=== PATIENT | male | born 1940 | race Caucasian/White ===

== ENCOUNTER 2018-07-24 07:54 | Day surgery (SDC) | payer MEDICARE, OTHER ==
[~2018-07-24] VITALS: Ht 167.6 cm; Wt 87.2 kg
[~2018-07-24 07:54] MED LIST: ATOR10; ATOR40TA PO; Cialis5 MG; LANS15EC PO; Multiple Vitam1 EAC1 PO; TAMS.4ER; VICODIN 5-3001 EACH PO
--- NOTE | 2018-07-24 10:01 | NUR ---
07/24/18 1001 Meena Horton 0934 BP 86/54. DR NOTIFIED, EPHEDRINE IV GIVEN PER ORDERS. VSS REST OF CASE
== END 2018-07-24 10:36 | disposition home or self-care (01) ==
LOC: ORSCSDS 07:54
PROVIDERS: Internal Medicine Gastroenterology
PROC: 0DB58ZX Excision of Esophagus, Via Natural or Artificial Opening Endoscopic, Diagnostic (ICD-10-PCS; principal; 2018-07-24 09:15)
PROC: 0DB98ZX Excision of Duodenum, Via Natural or Artificial Opening Endoscopic, Diagnostic (ICD-10-PCS; principal; 2018-07-24 09:15)
PROC: 0DBP8ZX Excision of Rectum, Via Natural or Artificial Opening Endoscopic, Diagnostic (ICD-10-PCS; principal; 2018-07-24 09:15)
DX: R19.7 Diarrhea, unspecified (principal); Z86.010 Personal history of colon polyps; D12.8 Benign neoplasm of rectum; R10.9 Unspecified abdominal pain; K57.30 Diverticulosis of large intestine without perforation or abscess without bleeding; K64.8 Other hemorrhoids; K44.9 Diaphragmatic hernia without obstruction or gangrene; K31.4 Gastric diverticulum; Z87.891 Personal history of nicotine dependence; Z79.899 Other long term (current) drug therapy
CPT/HCPCS: 88305; J7120

== ENCOUNTER 2019-05-14 07:00 | Day surgery (SDC) | payer MEDICARE, OTHER ==
[~2019-05-14] VITALS: Ht 170.2 cm; Wt 89.0 kg
[2019-05-14] MEDS ORDERED: Aspir 8181 MG PO (08:06)
--- NOTE | 2019-05-14 11:29 | NUR ---
RIGHT RADIAL TR BAND SITE SOFT NON-TENDER WITH NO HEMATOMA AND NO PULSATILE WITH WRIST BOARD INPLACE. PT AMBULATED TO BR TO VOID. PT DENIES CHEST PAIN. CALL LIGHT IN REACH; PT DRINKING COFFEE.
--- NOTE | 2019-05-14 13:06 | NUR ---
9 CC OF AIR REMOVED OVER 10 MIN FROM NOW DELFATED RIGHT TR BAND. NO HEMATOMA AND NO PULSATILE BLEEDING. DISCHARE INSTRUCTIONS REVIEWED AND ALL QUESTIONS ANSWERED. PT'S AND FRIEND IN ROOM. CALL LIGHT IN REACH.
--- NOTE | 2019-05-14 13:25 | NUR ---
NO CHANGES TO DEFLATED RIGHT TR BAND.
--- NOTE | 2019-05-14 14:01 | NUR ---
DEFLATED RIGHT TR BAND REMOVED AND POLYMEM PLACED OVER RIGHT RADIAL SITE. RIGHT WRIST BOARD PLACED. ALL DISCHARGE INSTRUCTIONS WERE REVIEWED. 20 G IV WAS DISCONTINUED WITH INTACT CANNULA. RIGHT ARM SLING PLACED AND PT ESCORTED OUT VIA WHEELCHAIR ESCORT. RIGHT RADIAL SITE SOFT NON-TENDER WITH NO HEMATOMA AND NO PULSATILE BLEEDING.
== END 2019-05-14 14:12 | disposition home or self-care (01) ==
LOC: MHTC 07:00
PROC: 4A023N7 Measurement of Cardiac Sampling and Pressure, Left Heart, Percutaneous Approach (ICD-10-PCS; principal; 2019-05-14)
PROC: B201YZZ Plain Radiography of Multiple Coronary Arteries using Other Contrast (ICD-10-PCS; principal; 2019-05-14)
DX: I25.10 Atherosclerotic heart disease of native coronary artery without angina pectoris (principal); I08.3 Combined rheumatic disorders of mitral, aortic and tricuspid valves; I11.9 Hypertensive heart disease without heart failure; I44.0 Atrioventricular block, first degree; I45.10 Unspecified right bundle-branch block; K21.9 Gastro-esophageal reflux disease without esophagitis; N52.9 Male erectile dysfunction, unspecified; I87.2 Venous insufficiency (chronic) (peripheral); I73.00 Raynaud's syndrome without gangrene; E78.5 Hyperlipidemia, unspecified; Z87.891 Personal history of nicotine dependence; Z79.899 Other long term (current) drug therapy
CPT/HCPCS: 93005; 93010; 93454; 99152; 99153; C1769; C1894; J1644; J2250; J3010; J7030; Q9967

== ENCOUNTER 2019-05-19 10:20 | Emergency (ER) | payer MEDICARE, OTHER ==
[~2019-05-19] VITALS: Ht 170.2 cm; Wt 88.8 kg
[~2019-05-19 10:20] MED LIST changes: +Aspir 8181 MG PO
[2019-05-19 10:44] LABS: BASOPHILS ABSOLUTE AUTO 0.04 K/mm3 (0.00-0.23); BASOPHILS PERCENT AUTO 1 % (0-2); EOSINOPHILS ABSOLUTE AUTO 0.12 K/mm3 (0.00-0.68); EOSINOPHILS PERCENT AUTO 2 % (0-6); Hematocrit 47.5 % (37.0-53.0); Hemoglobin 15.7 g/dL (13.5-17.5); IMMATURE GRAN ABSOLUTE AUTO 0.03 K/mm3 (0.00-0.10); IMMATURE GRAN PERCENT AUTO 0 % (0-1); LYMPHOCYTES ABSOLUTE AUTO 2.11 K/mm3 (0.84-5.20); LYMPHOCYTES PERCENT AUTO 30 % (21-46); MONOCYTES ABSOLUTE AUTO 0.41 K/mm3 (0.16-1.47); MONOCYTES PERCENT AUTO 6 % (4-13); Mean Corpuscular HGB 31.5 pg (26.0-34.0); Mean Corpuscular HGB Conc 33.1 g/dL (31.5-36.5); Mean Corpuscular Volume 95 fL (80-100); Mean Platelet Volume 9.5 fL (9.1-12.4); NEUTROPHILS ABSOLUTE AUTO 4.43 K/mm3 (1.96-9.15); NEUTROPHILS PERCENT AUTO 62 % (41-73); Platelet Count 225 K/mm3 (150-400); RDW Coefficient Variation 12.9 % (11.7-14.2); RDW Standard Deviation 45.8 fL (35.1-46.3); Red Blood Cell Count 4.99 M/mm3 (4.30-5.90); White Blood Cell Count 7.14 K/mm3 (4.00-11.30)
[2019-05-19 10:58] LABS: International Normalized Ratio 0.97; Prothrombin Time Results 10.3 Sec (9.7-11.5)
[2019-05-19] MEDS ORDERED: AMLODIPINE BESYL5 MG PO (10:59)
[2019-05-19] MEDS ORDERED: METO25ER (10:59)
[2019-05-19 11:09] LABS: Alanine Aminotransfer (ALT/SGP 30 U/L (12-78); Albumin, Blood 3.9 g/dL (3.4-5.0); Albumin/Globulin Ratio 1.2 (0.8-1.8); Alk Phos 84 U/L (50-136); Anion Gap 8 mmol/L (6-16); Aspartate Aminotrans (AST/SGOT 25 U/L (12-37); Bilirubin, Total 0.9 mg/dL (0.1-1.0); Blood Urea Nitrogen 14 mg/dL (8-24); Bun/Creatinine Ratio 12.4 (12.0-20.0); CO2, Blood 24 mmol/L (21-32); Calcium, Blood 9.1 mg/dL (8.5-10.1); Chloride, Blood 109 mmol/L (98-108); Creatinine, Blood 1.13 mg/dL (0.60-1.20); Globulin, Blood 3.2 g/dL (2.2-4.0); Glomerular Filtration Rate >60 (60-); Glucose, Blood 104 mg/dL (70-99); Potassium, Blood 3.9 mmol/L (3.5-5.5); Sodium, Blood 141 mmol/L (136-145); Total Protein, Blood 7.1 g/dL (6.4-8.2); Troponin I <0.015 ng/mL (0.000-0.040)
== END 2019-05-19 13:08 | disposition short-term general hospital (02) ==
LOC: ER 10:20
PROVIDERS: Physician Assistant
DX: I24.9 Acute ischemic heart disease, unspecified (principal); E78.00 Pure hypercholesterolemia, unspecified; Z95.9 Presence of cardiac and vascular implant and graft, unspecified; Z79.899 Other long term (current) drug therapy; Z79.82 Long term (current) use of aspirin; Z79.891 Long term (current) use of opiate analgesic
CPT/HCPCS: 36415; 71046; 80053; 83880; 84484; 85025; 85610; 93005; 93010; 99285-25; J1644

== ENCOUNTER → 2019-10-19 | Outpatient (CLI) | payer MEDICARE, OTHER ==
[~2019-10-19] MED LIST changes: +AMLODIPINE BESYL5 MG PO; +METO25ER
== END | disposition home or self-care (01) ==
LOC: LAB SHORT 14:31 → PLD 14:31
DX: C44.519 Basal cell carcinoma of skin of other part of trunk (principal)
CPT/HCPCS: 88305

== ENCOUNTER → 2019-12-01 | Outpatient (CLI) | payer MEDICARE, OTHER | END | disposition home or self-care (01) | LOC: LAB SHORT 07:58 → PLD 07:58 | DX: C44.519 Basal cell carcinoma of skin of other part of trunk (principal) | CPT/HCPCS: 88305 ==

== ENCOUNTER → 2020-01-21 | Outpatient (CLI) | payer MEDICARE, OTHER ==
[~2020-01-21] MED LIST changes: +ACET500 PO; +MAGNESIUM PO; +SERT50 PO; +TADA10TA PO; +TAMS.4ER PO; +VITAMIN D3125 MC3 PO; +[UNRECOGNIZED DRUG - CODE] PO
[2020-01-22 13:38] LABS: Stool Occult Blood Guaiac 1 Neg (Neg); Stool Occult Blood Guaiac 2 Neg (Neg)
[2020-01-22 13:39] LABS: Stool Occult Blood Guaiac 3 Neg (Neg)
== END | disposition home or self-care (01) ==
LOC: LAB FUT 01-14 17:25 → LAB SHORT 08:15 → LAB 08:15
PROVIDERS: Internal Medicine
DX: D64.9 Anemia, unspecified (principal)
CPT/HCPCS: 82272

== ENCOUNTER → 2020-11-28 | Outpatient (CLI) | payer MEDICARE, OTHER | LOC: LAB SHORT 13:13 → LAB 13:13 | DX: C44.519 Basal cell carcinoma of skin of other part of trunk (principal) | CPT/HCPCS: 88305 ==

== ENCOUNTER 2020-12-07 10:20 | Day surgery (SDC) | payer MEDICARE, OTHER | END 2020-12-07 23:13 | disposition home or self-care (01) | LOC: WOUND 10:20 | DX: S31.819A Unspecified open wound of right buttock, initial encounter (principal); X58.XXXA Exposure to other specified factors, initial encounter; K61.0 Anal abscess | CPT/HCPCS: A9270; G0463 ==

== ENCOUNTER 2020-12-11 00:19 | Day surgery (SDC) | payer MEDICARE, OTHER | END 2020-12-12 02:18 | disposition home or self-care (01) | LOC: WOUND 00:19 | DX: S31.819D Unspecified open wound of right buttock, subsequent encounter (principal); X58.XXXD Exposure to other specified factors, subsequent encounter; K61.0 Anal abscess | CPT/HCPCS: A9270; G0463 ==

== ENCOUNTER 2020-12-18 00:30 | Day surgery (SDC) | payer MEDICARE, OTHER | END 2020-12-18 23:32 | disposition home or self-care (01) | LOC: WOUND 00:30 | DX: K61.0 Anal abscess (principal); S31.819D Unspecified open wound of right buttock, subsequent encounter | CPT/HCPCS: A9270; G0463 ==

== ENCOUNTER → 2020-12-20 | Outpatient (CLI) | payer MEDICARE, OTHER | LOC: LAB 11:40 → LAB SHORT 11:40 | DX: C44.519 Basal cell carcinoma of skin of other part of trunk (principal) | CPT/HCPCS: 88305 ==

== ENCOUNTER 2020-12-26 03:47 | Day surgery (SDC) | payer MEDICARE, OTHER | END 2020-12-26 22:46 | disposition home or self-care (01) | LOC: WOUND 03:47 | DX: S31.819D Unspecified open wound of right buttock, subsequent encounter (principal); X58.XXXD Exposure to other specified factors, subsequent encounter; K61.0 Anal abscess | CPT/HCPCS: G0463 ==

== ENCOUNTER → 2021-05-25 | Outpatient (CLI) | payer MEDICARE, OTHER | END | disposition home or self-care (01) | LOC: LAB SHORT 13:32 → LAB 13:32 | DX: L72.3 Sebaceous cyst (principal) | CPT/HCPCS: 87070; 87075; 87205 ==

== ENCOUNTER → 2021-11-07 | Outpatient (CLI) | payer MEDICARE, OTHER | END | disposition home or self-care (01) | LOC: LAB SHORT 11:19 → LAB 11:19 | DX: C44.612 Basal cell carcinoma of skin of right upper limb, including shoulder (principal) | CPT/HCPCS: 88305 ==

== ENCOUNTER → 2021-12-08 | Outpatient (CLI) | payer MEDICARE, OTHER | END | disposition home or self-care (01) | LOC: LAB SHORT 10:56 → LAB 10:56 | DX: N39.0 Urinary tract infection, site not specified (principal) | CPT/HCPCS: 87077; 87086; 87186 ==

== ENCOUNTER 2022-02-14 07:06 | Day surgery (SDC) | payer MEDICARE, OTHER ==
[~2022-02-14] VITALS: Ht 167.6 cm; Wt 80.4 kg
[2022-02-14] MEDS ORDERED: Sanctura20 MG PO (07:37)
--- NOTE | 2022-02-14 10:06 | NUR ---
02/14/22 1006 Marguerite Mcgrath S IV WAS DISCONTINUED BY [facility]
== END 2022-02-14 09:54 | disposition home or self-care (01) ==
LOC: ORSCSDS 07:06
PROVIDERS: Internal Medicine Gastroenterology
PROC: 0DBL8ZX Excision of Transverse Colon, Via Natural or Artificial Opening Endoscopic, Diagnostic (ICD-10-PCS; principal; 2022-02-14 08:30)
PROC: 0DB78ZX Excision of Stomach, Pylorus, Via Natural or Artificial Opening Endoscopic, Diagnostic (ICD-10-PCS; principal; 2022-02-14 08:30)
PROC: 0DB58ZX Excision of Esophagus, Via Natural or Artificial Opening Endoscopic, Diagnostic (ICD-10-PCS; principal; 2022-02-14 08:30)
DX: K21.00 Gastro-esophageal reflux disease with esophagitis, without bleeding (principal); K31.7 Polyp of stomach and duodenum; Z12.11 Encounter for screening for malignant neoplasm of colon; Z86.010 Personal history of colon polyps; K57.30 Diverticulosis of large intestine without perforation or abscess without bleeding; K64.8 Other hemorrhoids; K44.9 Diaphragmatic hernia without obstruction or gangrene; Z79.899 Other long term (current) drug therapy; Z79.82 Long term (current) use of aspirin
CPT/HCPCS: 88305; J2704; J7120

== ENCOUNTER → 2022-10-28 | Outpatient (CLI) | payer MEDICARE, OTHER ==
[~2022-10-28] MED LIST changes: +Sanctura20 MG PO
[2022-10-28 14:03] LABS: Stool Occult Blood Guaiac 1 Neg (Neg)
== END | disposition home or self-care (01) ==
LOC: LAB 10:37 → LAB SHORT 10:37
PROVIDERS: Internal Medicine
DX: D50.9 Iron deficiency anemia, unspecified (principal)
CPT/HCPCS: 82272

== ENCOUNTER → 2022-10-29 | Outpatient (CLI) | payer MEDICARE, OTHER ==
[2022-10-29 14:21] LABS: Stool Occult Blood Guaiac 1 Neg (Neg)
== END | disposition home or self-care (01) ==
LOC: LAB 08:30 → LAB SHORT 08:30 → LAB FUT 10-25 10:45
PROVIDERS: Internal Medicine
DX: D50.9 Iron deficiency anemia, unspecified (principal)
CPT/HCPCS: 82270

== ENCOUNTER 2023-07-11 06:12 | Day surgery (SDC) | payer MEDICARE, OTHER ==
[~2023-07-11] VITALS: Ht 167.6 cm; Wt 79.8 kg
[2023-07-11] MEDS ORDERED: Aspir 8181 MG PO (06:34)
[2023-07-11 09:52] VITALS: BP 103/67
== END 2023-07-11 10:21 | disposition home or self-care (01) ==
LOC: ORSCSDS 06:12
PROVIDERS: Surgery
PROC: 0WQF4ZZ Repair Abdominal Wall, Percutaneous Endoscopic Approach (ICD-10-PCS; principal; 2023-07-11 07:30)
DX: K43.9 Ventral hernia without obstruction or gangrene (principal); I10 Essential (primary) hypertension; I25.2 Old myocardial infarction; I25.10 Atherosclerotic heart disease of native coronary artery without angina pectoris; E78.5 Hyperlipidemia, unspecified; J44.9 Chronic obstructive pulmonary disease, unspecified; Z87.891 Personal history of nicotine dependence; K21.9 Gastro-esophageal reflux disease without esophagitis; N40.0 Benign prostatic hyperplasia without lower urinary tract symptoms; Z79.899 Other long term (current) drug therapy; Z79.82 Long term (current) use of aspirin; I73.00 Raynaud's syndrome without gangrene
CPT/HCPCS: J0690; J1100; J2405; J2704; J2795; J3010; J7120